=== PATIENT | female | born 1965 | race African-American/Black ===

== ENCOUNTER 2025-02-06 13:12 | Emergency (ER) | payer SELFPAY ==
[~2025-02-06] VITALS: Ht 170.2 cm; Wt 95.9 kg
[2025-02-06 13:17] VITALS: TEMP 98.1
[2025-02-06] MEDS: LIDOCAINE HCL 2% LOCAL 20 ML VIAL INJ STA (13:51)
[2025-02-06] MEDS: DIPHTH,PERTUSS(ACELL),TET VAC 0.5 ML SYRINGE IM ONE (13:51)
[2025-02-06] MEDS: BACITRACIN ZINC 0.9GM TP ONE (13:51)
[2025-02-06] MEDS ORDERED: TYLENOL325 MG PO (14:13)
[2025-02-06] MEDS ORDERED: IBUPROFEN600 MG PO (14:13)
[2025-02-06] MEDS ORDERED: AMLODIPINE BESY10 MG PO (14:19)
[2025-02-06] MEDS ORDERED: LOSARTAN-HCTZ1 EAC2 (14:19)
[2025-02-06 14:30] VITALS: PULSE 82; RESP 18; O2SAT 98
== END 2025-02-06 14:30 | disposition home or self-care (01) ==
LOC: FSED 13:18
DX: S61.213A Laceration without foreign body of left middle finger without damage to nail, initial encounter (principal); W26.8XXA Contact with other sharp object(s), not elsewhere classified, initial encounter; Y93.89 Activity, other specified; I10 Essential (primary) hypertension
CPT/HCPCS: 12001; 90471; 90714; 96372; 99283; J2003

== ENCOUNTER 2025-02-20 10:18 | Emergency (ER) | payer SELFPAY ==
[~2025-02-20] VITALS: Ht 170.2 cm; Wt 95.7 kg
[~2025-02-20 10:18] MED LIST: AMLODIPINE BESY10 MG PO; IBUPROFEN600 MG PO; LOSARTAN-HCTZ1 EAC2; TYLENOL325 MG PO
[2025-02-20 10:34] VITALS: PULSE 90; RESP 16; TEMP 97.9; O2SAT 97
== END 2025-02-20 10:52 | disposition home or self-care (01) ==
LOC: FSED 10:31
DX: Z48.02 Encounter for removal of sutures (principal)
CPT/HCPCS: S0630